=== PATIENT | female | born 1950 | race Caucasian/White ===

== ENCOUNTER → 2018-04-21 | Outpatient (CLI) | payer MEDICARE | LOC: GMAH 11:59 | PROVIDERS: ATTEND Family Medicine | DX: I10 Essential (primary) hypertension (principal); E78.00 Pure hypercholesterolemia, unspecified ==

== ENCOUNTER → 2019-05-23 | Outpatient (CLI) | payer MEDICARE | LOC: GMA MATASK 10:36 | PROVIDERS: ATTEND Family Medicine | DX: I10 Essential (primary) hypertension (principal) ==

== ENCOUNTER → 2020-05-23 | Outpatient (CLI) | payer MEDICARE | LOC: GMA MATASK 10:35 | PROVIDERS: ATTEND Family Medicine | DX: I10 Essential (primary) hypertension (principal) ==